=== PATIENT | female | born 1990 | race Caucasian/White ===

== ENCOUNTER → 2018-10-13 | Outpatient (CLI) | payer OTHER ==
--- NOTE | 2018-10-13 20:17 | MRI ---
EXAM DESCRIPTION: Cervical Spine: MRI. CLINICAL HISTORY: 28 years Female RADICULOPATHY COMPARISON: None. TECHNIQUE: Multiplanar, high-field MRI, multiple sequences, non-contrast Cervical spine. FINDINGS: C5-C6: Minimal disc desiccation. Minimal disc space loss. Posterior left paracentral 5 mm protrusion impressing on the left ventral cord and posterior displacement of the left C6 nerve root. Left paracentral mild canal stenosis. No uncinate spurs. Bilateral foramina are patent. Facets are unremarkable. C6-C7: Minimal disc desiccation and minimal disc space loss. Posterior midline protrusion of the disc 4 mm abutting the ventral cord. Mild central canal stenosis. No uncinate spurs. Bilateral neural foramina are patent. Facets and ligaments are unremarkable. C7-T1: Disc desiccation minimal posterior superior T1 endplate reactive changes. Hyperintense T2 annular fissure in the posterior disc margin. Canal and neural foramina are patent. Facets and ligaments are negative. Normal signal in the remaining discs with no bulging. Disc spaces preserved. Canal and neural foramina are patent. Facet joints negative. Spinal alignment kyphosis C3-C5. C5-C7 mild levoscoliosis. No cord compression or cord edema. Atlantoaxial joint unremarkable.. Base of the cerebellar tonsils is at the level of the foramen magnum. Paravertebral soft tissues minimal enlargement of the left thyroid lobe. Vertebral bodies are not compressed at any level. Normal marrow signal in the remaining vertebral bodies and the posterior elements. IMPRESSION: 1. Left paracentral C5-C6 disc protrusion impressing on the left ventral cord and left C6 nerve root with left paracentral mild canal stenosis. No neural foraminal stenosis. 2. Posterior midline C4-C5 disc protrusion abutting the midline ventral cord. Mild central canal stenosis. Neural foramina are patent. Electronically signed by: Nico Kelly MD 10/13/2018 8:15 PM CDT
== END ==
LOC: MRI 08:54
PROVIDERS: ATTEND Family Medicine
DX: M50.122 Cervical disc disorder at C5-C6 level with radiculopathy (principal); M50.121 Cervical disc disorder at C4-C5 level with radiculopathy; M48.02 Spinal stenosis, cervical region

== ENCOUNTER → 2018-12-31 | Outpatient (CLI) | payer OTHER ==
--- NOTE | 2019-01-01 09:21 | NM ---
EXAM DESCRIPTION: Hepatobiliary w/CCK: Nuclear Medicine. CLINICAL HISTORY: RUQ PAIN COMPARISON: Ultrasound gallbladder 12/29/2012. TECHNIQUE: Patient was given 8.1 mCi of technetium 99 M mebrofenin Choletec radiopharmaceutical IV. Anterior gamma camera images were obtained of the right upper quadrant at 5 minute intervals for one hour . The patient was then given 1.0 mcg CCK IV infusion over 30-minute interval. Gallbladder ejection fraction was evaluated by measuring diminishing radioactivity in the gallbladder, over 30 min interval. FINDINGS: After administration of radiopharmaceutical, prompt visualization of the entire liver with photopenic areas represented by vascular structures. Timely visualization of the intrahepatic ducts, gallbladder, extrahepatic ducts and small intestine. After infusion of CCK IV began, nausea symptoms were not reproduced. Decrease in gallbladder activity at 10 minutes was 1%, and 20 minutes 27%, and 30 minutes 24%. No gastric reflux. IMPRESSION: 1. No intrahepatic or extrahepatic biliary obstruction. 2. Gallbladder ejection fraction at 20 minutes and 30 minutes was abnormal indicating acalculous cholecystitis or/and gallbladder dyskinesia. Consider correlation with gallbladder ultrasound as the prior gallbladder ultrasound was 6 years ago. Electronically signed by: Nico Kelly MD 01/01/2019 9:20 AM CDT
== END ==
LOC: NM 08:35
PROVIDERS: ATTEND Nurse Practitioner Family
DX: R10.11 Right upper quadrant pain (principal)